=== PATIENT | male | born 1950 | race Caucasian/White ===

== ENCOUNTER 2020-11-12 15:26 | Emergency (ER) | payer MEDICARE, OTHER ==
[~2020-11-12] VITALS: Ht 170.2 cm; Wt 82.6 kg
[2020-11-12] MEDS ORDERED: CEphaleXIN 500 MG CAPSULE PO ONE (16:00)
[2020-11-12] MEDS ORDERED: NEOMY/BACITRA/POLYMYXIN B OINT UD PACKET TP ONE ×2 (16:00→16:12)
[2020-11-12] MEDS ORDERED: SULFAMETH/TRIMETH 800/160 MG TABLET PO ONE (16:00)
--- NOTE | 2020-11-12 16:06 | NUR ---
PT WAS EVALUATED BY DR KELLY. PT WAS D/C'd TO HOME. D/C INSTRUCTIONS GIVEN TO THE PT BY DR KELLY.
[2020-11-12] MEDS ORDERED: SULFAMETH/TRIMETH 800/160 MG TABLET ONE (16:09)
[2020-11-12] MEDS ORDERED: CEphaleXIN 500 MG CAPSULE ONE (16:09)
[2020-11-12] MEDS ORDERED: CEPH500T PO (16:10)
[2020-11-12] MEDS ORDERED: SULF1TAB48 PO (16:10)
--- NOTE | 2020-11-12 16:30 | NUR ---
PT WAS D/C'd TO HOME. D/C INSTRUCTIONS GIVEN TO THE PT BY DR KELLY.
[2020-11-12 16:32] VITALS: BP 141/81
== END 2020-11-12 16:33 | disposition home or self-care (01) ==
LOC: ER 15:30
DX: L03.114 Cellulitis of left upper limb (principal); S51.812D Laceration without foreign body of left forearm, subsequent encounter; W22.8XXD Striking against or struck by other objects, subsequent encounter; I25.10 Atherosclerotic heart disease of native coronary artery without angina pectoris; Z95.5 Presence of coronary angioplasty implant and graft
CPT/HCPCS: A4663